=== PATIENT | male | born 1935 | race Caucasian/White ===

== ENCOUNTER 2017-04-04 04:58 | Day surgery (SDC) | payer OTHER ==
[2017-04-02 16:44] VITALS: BMI 20.7
--- NOTE | 2017-04-04 08:15 | HP ---
Satellite [facility] - Chief Complaint Chief Complaint: left shoulder pain History of Present Illness: left shoulder injury s/p fall History Source: Patient Limitations to Obtaining History: No Limitations - Past Medical History Allergies/Adverse Reactions: Allergies Allergy/AdvReac Type Severity Reaction Status Date / Time No Known Allergies Allergy Verified 04/02/17 16:35 - Current Medications Current Medications: Home Medications Medication Instructions Recorded Aspirin 81 mg PO DAILY 04/02/17 Atorvastatin Ca [Lipitor] 10 mg PO HS 04/02/17 Lisinopril [Prinivil] 10 mg PO DAILY 04/02/17 Metoprolol Succinate 12.5 mg PO DAILY 04/02/17 Tamsulosin HCl 0.4 mg PO DAILY 04/02/17 Satellite Physical Exam - Physical Examination General Appearance: Well Nourished ENT: Clear Lung: Clear to auscultation Heart: Regular rate & rhythm Breasts: Soft Abdomen: Soft Extremities: No edema Satellite Impression/Plan - Impression/Plan Impression: left shoulder dislocation and fracture s/p fall Operative Procedure: left shoulder open ORIF and RTC repair Date to be Performed: 04/04/17
[2017-04-04] MEDS ORDERED: MIDAZOLAM HCL 2 MG/2 ML SINGLE DOSE VIAL ONE (16:00)
[2017-04-04] MEDS ORDERED: ROPIVACAINE HCL 0.5% 30ML VIAL ONE (16:01)
[2017-04-04] MEDS ORDERED: ceFAZolin SODIUM 1 GM VIAL IVPB ONE (16:40)
--- NOTE | 2017-04-04 17:48 | OP ---
Operative Note - Note: Operative Date: 04/04/17 Pre-Operative Diagnosis: left shoulder dislocation, displaced greater tuberosity fracture, RTC tear Operation: ORIF left proximal humerus/greater tuberosity, open RTC repair Implants: [place] 5.0mm screws x 3, 44, 44, and 46 mm length Surgeon: Rupert Garcia Analog Device Designer: Caden Kim Anesthesiologist/APPLICATIONS TESTER: Josh Aguilar Anesthesia: General Estimated Blood Loss (mls): 50 Drains, Volume Out (mls): 0 Blood Volume Replaced (mls): 0 Fluid Volume Replaced (mls): 700 Operative Report Dictated: Yes
[2017-04-04] MEDS ORDERED: ONDANSETRON 4 MG/2 ML VIAL IVPUSH PRN (18:02)
[2017-04-04] MEDS ORDERED: LACTATED RINGERS SOLUTION 1,000 ML IV SCH (18:15)
[2017-04-04 19:34] VITALS: TEMP 98
[2017-04-04 22:08] VITALS: BP 136/63; PULSE 71
--- NOTE | 2017-04-05 09:23 | OP ---
DATE OF OPERATION: 04/04/2017 PREOPERATIVE DIAGNOSES: Left shoulder dislocation, displaced tuberosity fracture, and rotator cuff tear. POSTOPERATIVE DIAGNOSES: Left shoulder dislocation, displaced tuberosity fracture, and rotator cuff tear. PROCEDURE: Open reduction and internal fixation of left proximal humerus/greater tuberosity and open rotator cuff repair. SURGEON: Ish Zamudio MD MANAGER OF CASE: THELMA Lyn ANESTHESIOLOGIST: ; Josh Aguilar MD ANESTHESIA: LMA and left interscalene block. DRAINS: None. COMPLICATIONS: None. BLOOD LOSS: 50 mL BLOOD GIVEN: None. FLUID REPLACEMENT: 700 mL INDICATION FOR PROCEDURE: This patient is an 81-year-old male who fell jogging 3 days ago and sustained a left shoulder dislocation, proximal humerus/greater tuberosity fracture, and rotator cuff tear. After understanding the potential risks, complications, alternatives, and benefits of surgery versus nonsurgical treatment, the patient elected to undergo this procedure. He understands he may have permanent dysfunction, especially some weakness in lifting the arm above the plane of his shoulder. DESCRIPTION OF PROCEDURE: He was brought to the operating room, peripheral IV placed, IV sedation given. He was given 1 g of IV Ancef. A left interscalene block was performed. The left upper extremity was prepped and draped in sterile fashion. The bony landmarks were marked out with a marking pen, incision marked out. The incision was made with a number 15-scalpel blade. Subcutaneous hemostasis achieved with Bovie cautery. Dissection done longitudinally through the fibers of the deltoid without cutting the deltoid. We got down to the shoulder, proximal humerus itself. Danielito and Gelpi retractors were used for retraction. The hematoma was removed. Irrigation and a curette were used to remove soft tissue debris from the fracture site. I then did a provisional reduction, held it in place with K-wires. X-rays were taken. It looked quite good. Therefore, the cortex was overdrilled, and two 5.0-mm [place] titanium, partially threaded, cannulated screws were placed through the greater tuberosity, into the humeral head. They were unicortical but engaged the far cortex. They were both 45 mm in length with washers. Now, the greater tuberosity moved as a unit with the humerus. Next, 3 FiberWire were placed through the junction of the rotator cuff and the greater tuberosity. We then put another cannulated, partially threaded guidewire and put in a cannulated 5.0-mm, 44 mm in length screw with a washer, acting as a post and looped the FiberWires under the washer. It was then held down, tied over the post, and the post advanced to get bicortical fixation. X-rays were taken. Overall, everything looked quite good. Therefore, the FiberWire sutures were tied down and then tied to themselves as insurance stitches. The tails were cut. The proximal humerus, greater tuberosity, and rotator cuff moved as a unit with the humerus. The area was irrigated and washed out. Closure was done with 0 Vicryl in the deltoid fascia, 2-0 Vicryl in the deep dermal layer. Final skin approximation was done with a running subcuticular 3-0 V-Loc suture. The area was washed and dried and covered with SwiftSet skin glue, Aquacel dressing. He was placed into a shoulder immobilizer. Total operative time was 45 minutes. There were no complications during the case. The patient tolerated the procedure quite well and was brought to the ambulatory recovery room in stable condition. ISH ZAMUDIO M.D. [id number]
== END 2017-04-04 10:00 | disposition home or self-care (01) ==
LOC: JASU-SURG 04:58
PROVIDERS: ATTEND Orthopaedic Surgery
PROC: 0LQ20ZZ Repair Left Shoulder Tendon, Open Approach (ICD-10-PCS; 2017-04-04)
PROC: 0RSK04Z Reposition Left Shoulder Joint with Internal Fixation Device, Open Approach (ICD-10-PCS; principal; 2017-04-04 13:30)
PROC: 0LQ20ZZ Repair Left Shoulder Tendon, Open Approach (ICD-10-PCS; 2017-04-04 13:30)
DX: S42.252A Displaced fracture of greater tuberosity of left humerus, initial encounter for closed fracture (principal); S46.012A Strain of muscle(s) and tendon(s) of the rotator cuff of left shoulder, initial encounter; W19.XXXA Unspecified fall, initial encounter; Y93.02 Activity, running; Y92.9 Unspecified place or not applicable; Y99.9 Unspecified external cause status
CPT/HCPCS: 76000-TC-FY; 94760

== ENCOUNTER 2017-04-05 01:24 | Emergency (ER) | payer OTHER ==
[2017-04-05 03:10] VITALS: TEMP 98.4; BMI 20.7
--- NOTE | 2017-04-05 04:34 | PDOC ---
Attending Attestation - HPI HPI: 04/05/17 04:35 The patient is a 81 year old male, with a significant past medical history of, who presents to the emergency department with inability to urinate s/p ORIF to left proximal humerus/greater tuberosity yesterday, 04/04/17. The patient states he did not urinate prior to his discharge and has not urinated since. The patient denies chest pain, shortness of breath, headache and dizziness. The patient denies fever, chills, nausea, vomit, diarrhea and constipation. Allergies: NKDA - Medical Decision Making 04/05/17 04:35 Documentation prepared by Rachelle Mckoy, acting as medical equipment technician for Dominic Carter DO. <Rachelle Mckoy - Last Filed: 04/05/17 04:35> - Resident Resident Name: AngeloMisael - ED Attending Attestation I have performed the following: I have examined & evaluated the patient, The case was reviewed & discussed with the resident, I agree w/resident's findings & plan, Exceptions are as noted - Physicial Exam PE: 04/05/17 04:53 Physical Exam General Appearance: Yes: Appropriately Dressed. No: Apparent Distress, Intoxicated HEENT: positive: EOMI, CHAU, Normal ENT Inspection, Normal Voice, TMs Normal, Pharynx Normal. negative: Pale Conjunctivae, Photophobia, Scleral Icterus (R), Scleral Icterus (L) Neck: positive: Trachea midline, Normal Thyroid, Supple. negative: Tender, Rigid, Carotid bruit, Stridor, Lymphadenopathy (R), Lymphadenopathy (L), Thyromegaly Respiratory/Chest: positive: Lungs Clear, Normal Breath Sounds. negative: Chest Tender, Respiratory Distress, Accessory Muscle Use, Labored Respiration, RES, Crackles, Rales, Rhonchi, Stridor, Wheezing, Dullness Cardiovascular: positive: Regular Rhythm, Regular Rate, S1, S2. negative: Edema , JVD, Murmur, Bradycardia, Tachycardia Vascular Pulses: Dorsalis-Pedis (R): 2+, Doralis-Pedis (L): 2+ Gastrointestinal/Abdominal: positive: Normal Bowel Sounds, Flat, Soft. post rincon catheter negative: Tender, Organomegaly, Pulsatile Mass, Increased Bowel Sounds, Decreased BS, Distended, Guarding, Rebound, Hernia, Hepatomegaly, Spleenomegaly Lymphatic: negative: Adenopathy, Tenderness Musculoskeletal: positive: Normal Inspection. negative: CVA Tenderness, Decreased Range of Motion Extremity: positive: Normal Capillary Refill, Normal Inspection, Normal Range of Motion, Pelvis Stable. negative: Tender, Pedal Edema, Swelling, Erythema Integumentary: positive: Normal Color, Dry, Warm. negative: Cyanotic, Erythema , Jaundice, Rash Neurologic: positive: automotive design layout drafter II-XII NML intact, Fully Oriented, Alert, Normal Mood/ Affect, Motor Strength 5/5. negative: EOM Palsy, Facial Droop, Sensory Deficit - Medical Decision Making 04/05/17 19:21 Pt discharged with rincon catheter in place and leg bag.. Advised to follow up with urology for removal of catheter <Dominic Carter - Last Filed: 04/05/17 19:22>
--- NOTE | 2017-04-05 04:45 | PDOC ---
History of Present Illness - General Chief Complaint: Urinary Problem Stated Complaint: UNABLE TO URINATE Time Seen by Provider: 04/05/17 03:25 History Source: Patient Exam Limitations: No Limitations - History of Present Illness Initial Comments: 04/05/17 04:44 81M with pmh of prostate hyperplasia s/p TURP and left humerus fracture s/p internal fixation earlier today presents to the ED with urinary retention and penile pain. Patient claims that he hasn't urinated for the past two days. Urologist is Dr. Bishop from [facility]. 04/05/17 04:52 Past History - Past Medical History Allergies/Adverse Reactions: Allergies Allergy/AdvReac Type Severity Reaction Status Date / Time No Known Allergies Allergy Verified 04/05/17 03:08 Home Medications: Ambulatory Orders Aspirin 81 mg PO DAILY 04/02/17 Atorvastatin Ca [Lipitor] 10 mg PO HS 04/02/17 Lisinopril [Prinivil] 10 mg PO DAILY 04/02/17 Metoprolol Succinate 12.5 mg PO DAILY 04/02/17 Tamsulosin HCl 0.4 mg PO DAILY 04/02/17 Tramadol HCl/Acetaminophen [Ultracet] 1 each PO PRN 04/05/17 Anemia: No Asthma: No Cancer: No Cardiac Disorders: Yes (cabg x 3 2000,) CVA: No COPD: No Dementia: No Diabetes: No GI Disorders: No Disorders: No HTN: Yes Hypercholesterolemia: Yes Liver Disease: No Seizures: No Thyroid Disease: No - Suicide/Smoking/Psychosocial Hx Smoking History: Never smoked Have you smoked in the past 12 months: No If you are a former smoker, when did you quit?: 50 years ago Information on smoking cessation initiated: No Hx Alcohol Use: No Drug/Substance Use Hx: No Hx Substance Use Treatment: No Review of Systems - Review of Systems Able to Perform ROS?: Yes Is the patient limited [place] proficient: No Constitutional: No: Symptoms Reported HEENTM: No: Symptoms Reported Respiratory: No: Symptoms reported Cardiac (ROS): No: Symptoms Reported ABD/GI: No: Symptoms Reported : Yes: See HPI Musculoskeletal: No: Symptoms Reported Integumentary: No: Symptoms Reported Neurological: No: Symptoms reported *Physical Exam - Vital Signs Last Vital Signs Temp Pulse Resp BP Pulse Ox 98.4 F 118 H 14 159/82 94 L 04/05/17 03:08 04/05/17 03:08 04/05/17 03:08 04/05/17 03:08 04/05/17 03:08 - Physical Exam General Appearance: Yes: Nourished, Appropriately Dressed, Moderate Distress HEENT: positive: EOMI, CHAU Neck: negative: Tender Respiratory/Chest: positive: Lungs Clear, Normal Breath Sounds. negative: Chest Tender, Respiratory Distress Cardiovascular: positive: Regular Rhythm, Regular Rate, S1, S2 Gastrointestinal/Abdominal: positive: Normal Bowel Sounds, Flat, Soft. negative : Tender Extremity: positive: Normal Capillary Refill, Normal Inspection, Normal Range of Motion Integumentary: positive: Normal Color, Dry, Warm Neurologic: positive: Fully Oriented, Alert, Normal Mood/Affect Medical Decision Making - Medical Decision Making 04/05/17 04:52 Rincon immediately placed. 600mL of urine evacuated. Patient much more comfortable and pain free. Will discharge with rincon leg bag and follow up with Dr. Pretty. *DC/Admit/Observation/Transfer Diagnosis at time of Disposition: Urinary retention - Discharge Dispostion Disposition: HOME Condition at time of disposition: Improved Admit: No - Referrals - Patient Instructions Printed Discharge Instructions: DI for Urinary Retention in Men Additional Instructions: Follow up within the next day with Dr. Pretty. Come back to the ER for any new, worsening or concerning symptom. - Post Discharge Activity
[2017-04-05 06:28] VITALS: BP 149/59; PULSE 98
== END 2017-04-05 06:29 | disposition home or self-care (01) ==
LOC: JER 01:24
PROC: 0T9B70Z Drainage of Bladder with Drainage Device, Via Natural or Artificial Opening (ICD-10-PCS; principal; 2017-04-05)
DX: N40.1 Benign prostatic hyperplasia with lower urinary tract symptoms (principal); R33.8 Other retention of urine; Z98.890 Other specified postprocedural states; I25.810 Atherosclerosis of coronary artery bypass graft(s) without angina pectoris; I10 Essential (primary) hypertension; Z95.1 Presence of aortocoronary bypass graft; Z87.891 Personal history of nicotine dependence; E78.00 Pure hypercholesterolemia, unspecified
CPT/HCPCS: 99282-25

== ENCOUNTER 2021-06-22 04:27 | Day surgery (SDC) | payer OTHER ==
[~2021-06-22 04:27] MED LIST: ACETAMINOPHEN 325 MG TABLET (FP) PO PRN
[2021-06-22] MEDS ORDERED: CYCLOPENTOLATE HCL 1% OPHTH SOLN 2 ML BOTTLE ONE (06:15)
[2021-06-22] MEDS ORDERED: PHENYLEPHRINE 2.5% OPHTH SOLN 15 ML BOTTLE ONE (06:15)
[2021-06-22] MEDS ORDERED: KETOROLAC TROMETHAMINE 0.5% EYE DROP 1 DROP DROPS ONE (06:15)
[2021-06-22] MEDS ORDERED: TROPICAMIDE 1% OPHTH SOLN 15 ML BOTTLE ONE (06:15)
[2021-06-22] MEDS ORDERED: OFLOXACIN 0.3% OPHTHALMIC SOLUTION 5 ML BOTTLE ONE (06:16)
[2021-06-22] MEDS: TROPICAMIDE 1% OPHTH SOLN 15 ML BOTTLE OP SCH ×3 (06:25→06:51)
[2021-06-22] MEDS: PHENYLEPHRINE 2.5% OPHTH SOLN 15 ML BOTTLE OP SCH ×3 (06:25→06:51)
[2021-06-22] MEDS: KETOROLAC TROMETHAMINE 0.5% EYE DROP 1 DROP DROPS OP SCH ×3 (06:25→06:49)
[2021-06-22] MEDS: CYCLOPENTOLATE HCL 1% OPHTH SOLN 2 ML BOTTLE OP SCH ×3 (06:25→06:49)
[2021-06-22] MEDS: OFLOXACIN 0.3% OPHTHALMIC SOLUTION 5 ML BOTTLE OP SCH ×3 (06:25→06:49)
[2021-06-22] MEDS ORDERED: LIDOCAINE HCL/PF 1% SDV 5ML VIAL ONE (07:07)
[2021-06-22] MEDS ORDERED: CHONDROITIN SU A/HYALUR SOD 1 KIT ONE (07:07)
[2021-06-22] MEDS ORDERED: EPINEPHrine/PF 1 MG/1 ML (1:1,000) AMPULE ONE (07:19)
[2021-06-22] MEDS ORDERED: VANCOMYCIN 500 MG VIAL (RESTRICTED TO ID ONLY) ONE (07:19)
[2021-06-22] MEDS ORDERED: POVIDONE-IODINE 5% OPHTHALMIC PREP 30 ML SOLUTION ONE (07:19)
[2021-06-22] MEDS ORDERED: MIDAZOLAM HCL 2 MG/2 ML SINGLE DOSE VIAL ONE (07:46)
[2021-06-22] MEDS ORDERED: CHONDROITIN SU A/HYALUR SOD 1 KIT IO ONE (07:49)
[2021-06-22] MEDS ORDERED: LIDOCAINE HCL/PF 2% SDV 5ML VIAL INF ONE (07:49)
[2021-06-22] MEDS ORDERED: EPINEPHrine 1:1,000 1,000 MCG/ML ML SQ ONE (07:49)
[2021-06-22] MEDS ORDERED: BSS (NA/CA/MG/K) BALANCED SALT SOLUTION OPHTH SOLN 15 ML BOTTLE OD ONE (07:49)
[2021-06-22] MEDS ORDERED: TETRACAINE 0.5% OPHTH SOLN 2 ML BOTTLE TP ONE (07:49)
[2021-06-22] MEDS ORDERED: LIDOCAINE HCL 1% PRESERVATIVE FREE - 30ML VIAL IO ONE (07:49)
[2021-06-22] MEDS ORDERED: POVIDONE-IODINE 5% OPHTHALMIC PREP 30 ML SOLUTION OD ONE (07:49)
[2021-06-22 10:22] VITALS: BP 143/54; PULSE 54; TEMP 97.8
== END 2021-06-22 10:22 | disposition home or self-care (01) ==
LOC: JASU-SURG 04:27
PROVIDERS: ATTEND Ophthalmology
PROC: 08RJ3JZ Replacement of Right Lens with Synthetic Substitute, Percutaneous Approach (ICD-10-PCS; principal; 2021-06-22 08:00)
DX: H26.9 Unspecified cataract (principal)

== ENCOUNTER 2021-07-06 04:51 | Day surgery (SDC) | payer OTHER ==
[~2021-07-06 04:51] MED LIST changes: +CYCLOPENTOLATE HCL 1% OPHTH SOLN 2 ML BOTTLE OP SCH; +KETOROLAC TROMETHAMINE 0.5% EYE DROP 1 DROP DROPS OP SCH; +OFLOXACIN 0.3% OPHTHALMIC SOLUTION 5 ML BOTTLE OP SCH; +PHENYLEPHRINE 2.5% OPHTH SOLN 15 ML BOTTLE OP SCH; +TROPICAMIDE 1% OPHTH SOLN 15 ML BOTTLE OP SCH
[2021-07-06] MEDS ORDERED: LIDOCAINE HCL/PF 1% SDV 5ML VIAL ONE (07:04)
[2021-07-06] MEDS ORDERED: CHONDROITIN SU A/HYALUR SOD 1 KIT ONE (07:04)
[2021-07-06] MEDS ORDERED: BSS (NA/CA/MG/K) BALANCED SALT SOLUTION OPHTH SOLN 15 ML BOTTLE ONE (07:21)
[2021-07-06] MEDS ORDERED: TETRACAINE 0.5% OPHTH SOLN 2 ML BOTTLE ONE (07:21)
[2021-07-06] MEDS ORDERED: POVIDONE-IODINE 5% OPHTHALMIC PREP 30 ML SOLUTION ONE (07:21)
[2021-07-06] MEDS ORDERED: KETOROLAC TROMETHAMINE 0.5% EYE DROP 1 DROP DROPS ONE (09:20)
[2021-07-06] MEDS ORDERED: OFLOXACIN 0.3% OPHTHALMIC SOLUTION 5 ML BOTTLE ONE (09:20)
[2021-07-06] MEDS ORDERED: PHENYLEPHRINE 2.5% OPTHALMIC DROP BOTTLE ONE (09:20)
[2021-07-06] MEDS ORDERED: CYCLOPENTOLATE HCL 1% OPHTH SOLN 2 ML BOTTLE ONE (09:20)
[2021-07-06] MEDS ORDERED: TROPICAMIDE 1% OPHTH SOLN 15 ML BOTTLE ONE (09:20)
[2021-07-06] MEDS ORDERED: PHENYLEPHRINE 2.5% OPHTH SOLN 15 ML BOTTLE OD ONE ×3 (09:30→09:40)
[2021-07-06] MEDS ORDERED: TROPICAMIDE 1% OPHTH SOLN 15 ML BOTTLE OD ONE ×3 (09:30→09:40)
[2021-07-06] MEDS ORDERED: CYCLOPENTOLATE HCL 1% OPHTH SOLN 2 ML BOTTLE OD ONE ×3 (09:30→09:40)
[2021-07-06] MEDS ORDERED: OFLOXACIN 0.3% OPHTHALMIC SOLUTION 5 ML BOTTLE OD ONE ×3 (09:30→09:40)
[2021-07-06] MEDS ORDERED: KETOROLAC TROMETHAMINE 0.5% EYE DROP 1 DROP DROPS OD ONE ×3 (09:30→09:40)
[2021-07-06] MEDS ORDERED: MIDAZOLAM HCL 2 MG/2 ML SINGLE DOSE VIAL ONE (10:32)
[2021-07-06] MEDS ORDERED: TETRACAINE 0.5% OPHTH SOLN 2 ML BOTTLE OS ONE (10:38)
[2021-07-06] MEDS ORDERED: POVIDONE-IODINE 5% OPHTHALMIC PREP 30 ML SOLUTION OS ONE (10:39)
[2021-07-06] MEDS ORDERED: BSS (NA/CA/MG/K) BALANCED SALT SOLUTION OPHTH SOLN 15 ML BOTTLE IO ONE (10:45)
[2021-07-06] MEDS ORDERED: LIDOCAINE HCL 1% PRESERVATIVE FREE - 30ML VIAL IO ONE (10:46)
[2021-07-06] MEDS ORDERED: CHONDROITIN SU A/HYALUR SOD 1 KIT IO ONE (10:46)
[2021-07-06] MEDS ORDERED: PHENYLEPHRINE/KETOROLAC 4 ML VIAL IO ONE (10:52)
[2021-07-06 11:35] VITALS: PULSE 52; TEMP 97.8
[2021-07-06 13:03] VITALS: BP 137/66
== END 2021-07-06 12:40 | disposition home or self-care (01) ==
LOC: JASU-SURG 04:51
PROVIDERS: ATTEND Ophthalmology
PROC: 08RK3JZ Replacement of Left Lens with Synthetic Substitute, Percutaneous Approach (ICD-10-PCS; principal; 2021-07-06 11:00)
DX: H26.9 Unspecified cataract (principal); I10 Essential (primary) hypertension
CPT/HCPCS: J1097